=== PATIENT | male | born 1940 | race Caucasian/White ===

== ENCOUNTER 2022-05-15 12:33 | Inpatient (IN) | payer MEDICARE, OTHER ==
[~2022-05-15] VITALS: Ht 177.8 cm; Wt 54.4 kg
[2022-05-15 13:35] LABS: HEMOGLOBIN 10.7 gm/dl (14.0-17.5); RED BLOOD COUNT 3.73 M/UL (4.20-5.50); WHITE BLOOD COUNT 6.7 K/UL (4.5-11.0)
[2022-05-15 14:02] LABS: BUN/CREATININE RATIO 33 (0-10)
[2022-05-15] MEDS ORDERED: HYDROCHLOROTHIA25 MG PO (17:37)
[2022-05-15] MEDS ORDERED: DRONABINOL5 MG PO (17:37)
[2022-05-15] MEDS ORDERED: LORATADINE10 MG PO (17:38)
[2022-05-15] MEDS ORDERED: ELIGARD45 MG SQ (17:38)
[2022-05-15] MEDS ORDERED: IBU600 MG PO (17:38)
[2022-05-15] MEDS ORDERED: MEGESTROL ACETATE PO (17:40)
[2022-05-15] MEDS ORDERED: METOPROLOL SUC100 MG PO (17:41)
[2022-05-15] MEDS ORDERED: PROCHLORPERAZIN10 MG PO (17:41)
[2022-05-15] MEDS ORDERED: ONDANSETRON HCL8 MG PO (17:41)
[2022-05-15] MEDS ORDERED: CRESTOR40 MG PO (17:42)
[2022-05-15 19:38] LABS: BUN/CREATININE RATIO 28 (0-10)
[2022-05-15 22:50] LABS: BUN/CREATININE RATIO 24 (0-10)
[2022-05-16 06:50] LABS: HEMOGLOBIN 9.3 gm/dl (14.0-17.5); RED BLOOD COUNT 3.38 M/UL (4.20-5.50); WHITE BLOOD COUNT 6.6 K/UL (4.5-11.0)
[2022-05-16 14:11] LABS: BUN/CREATININE RATIO 21 (0-10)
[2022-05-16 17:00] LABS: BUN/CREATININE RATIO 23 (0-10)
[2022-05-17 06:34] LABS: HEMOGLOBIN 9.5 gm/dl (14.0-17.5); RED BLOOD COUNT 3.4 M/UL (4.20-5.50); WHITE BLOOD COUNT 8.7 K/UL (4.5-11.0)
[2022-05-17 06:40] LABS: BUN/CREATININE RATIO 22 (0-10)
[2022-05-17 11:29] LABS: BUN/CREATININE RATIO 24 (0-10)
[2022-05-17] MEDS ORDERED: THERAGRAN M TAB1 EA PO (13:26)
[2022-05-17] MEDS ORDERED: SODIUM CHLORIDE1 GM PO (13:26)
[2022-05-18 08:14] LABS: FOLATE (FOLIC ACID), SERUM 7.8 ng/mL (>3.0)
== END 2022-05-17 14:10 | disposition home or self-care (01) | DRG 641 ==
LOC: ER1 12:33 → CDU 17:13 → MED SURG 4 17:13
PROVIDERS: Nurse Practitioner; ADMIT Internal Medicine Infectious Disease
DX: E87.1 Hypo-osmolality and hyponatremia (principal); Z68.1 Body mass index [BMI] 19.9 or less, adult; E44.0 Moderate protein-calorie malnutrition; Z20.822 Contact with and (suspected) exposure to COVID-19; C79.51 Secondary malignant neoplasm of bone; J98.11 Atelectasis; T50.2X5A Adverse effect of carbonic-anhydrase inhibitors, benzothiadiazides and other diuretics, initial encounter; D64.9 Anemia, unspecified; C61 Malignant neoplasm of prostate; E78.5 Hyperlipidemia, unspecified; I10 Essential (primary) hypertension; Z90.49 Acquired absence of other specified parts of digestive tract; Z85.038 Personal history of other malignant neoplasm of large intestine; Z85.05 Personal history of malignant neoplasm of liver
CPT/HCPCS: 36415; 71045; 80048; 80053; 80076; 81001; 82550; 82553; 82607; 82728; 82746; 83540; 83550; 83605; 83690; 84443; 84484; 85025; 93005; 96374; 96375; 99285; C9113; J0456; J0696; J1650; J2405; Q9967